=== PATIENT | female | born 1975 | race Caucasian/White ===

== ENCOUNTER 2017-12-16 16:30 | Outpatient (RCR) | payer OTHER, SELFPAY ==
--- NOTE | 2017-09-22 17:32 | HP.PTEVAL_ITS ---
Patient's Visit Information MINA CHOWDHURY is a 42 year old F referred to Physical Therapy by DO EVAN Bailey with a diagnosis of R med meniscus repair 08-05-2018. Date of Evaluation: 09/22/17 Physical Therapist: Carmen Posadas - Visit Plan Frequency: 2-3x /Week Duration: 2 Months Plan: 2-3X/ week for 6-8 weeks for R knee AROM, strengthening, gait training, functional activities with HEP and modalities PRN. ++++Pt's Quad is extremely weak and causing her decreased ability to full contract Quad with gait (start slowly to increase ROM, Quad strengthm and gait mechaincis - Subjective Subjective: Aug 05 had R meniscal repair on the R knee. She has been NWB and in a brace for the last [address] Thao Thursday and she was able to get off the crutches and the brace and took till Thursday to be able to walk without the one crutch. She returns back to Dr Thao in 6 weeks. She has been trying to squat to try and bend the knee. She is having trouble bending the knee. For 2 weeks the brace was locked and then in 2 weeks she was aloowed to release the brace to 90 degrees. She was never able to to get it to 90 degrees. Repair is healed. She has been biking at home up until Surgery and Yoga every day (modified). - Pain R knee pain Pain Intensity (Out of 10): 0 Pain Intensity Range: 5 Comment: 09/23 with walking - Objective Gait: Walks with decrease heel to toe gait pattern on the R, increased knee flexion on the R and decreased stance time on the R. LE MMT: hip abd R 4/5, L 5 /5, hip ext R 4-/5 and L 4/5, knee flex and ext on the R not tested due to surgical procedure. R knee flexion 65 degrees AROM....after 5 min on Nu-step L1... pt was able to get to 68 degrees. Tight gaastroc on the R - Goals Goal 1:: I HEP Goal Time Frame: 4-6 Weeks Goal 2:: Increase R knee AROM 0-130 degrees flexion Goal Time Frame: 4-6 Weeks Goal 3:: Walk with a normal gait pattern Goal Time Frame: 4-6 Weeks Goal 4:: Be able to go up and down stairs recip without a rail and without any signs of weakness Goal Time Frame: 4-6 Weeks - Rehabilitation Potential Rehabilitation Potential: Good - Anticipated Interventions Patient/Client Instruction: Educate patient on: Plan of Care For the Purpose of:: To decrease pain, To decrease swelling/inflammation, To increase ROM, To improve nutrient delivery to tissue, To improve muscle performance and motor function, To improve ability to perform ADL's, To decrease level of supervision to perform tasks, To improve ability of physical actions for home/community/work/leisure, To improve gait and locomotor functions , To improve health of tissue, To decrease soft tissue restriction, To increase flexibility/ROM, To improve balance, To improve safety with gait Therapeutic Exercise to Include: Strength training, Balance training, Flexibilty training, Gait and locomotor training, Passive ROM, Active ROM For the Purpose of:: To decrease pain, To decrease swelling/inflammation, To increase ROM, To improve nutrient delivery to tissue, To improve muscle performance and motor function, To improve ability to perform ADL's, To increase tolerance to activity/condition/position, To improve performance and independence with ADL's, To improve ability of physical actions for home/ community/work/leisure, To improve gait and locomotor functions Functional Training to Include: Gait training For the Purpose of:: To improve gait and locomotor functions, To increase flexibility/ROM, To improve safety with gait Comment: patella mobs For the Purpose of:: To increase ROM, To improve nutrient delivery to tissue IF ES: Yes Cryotherapy (ice pack, ice massage): Yes Thermo therapy (hot pack): Yes For the Purpose of:: To decrease pain, To increase ROM, To improve nutrient delivery to tissue Thank you for the opportunity to evaluate your patient. For Medicare and Medicare HMO plans, please review the plan of care and approve it. It will need to be FAXED BACK to us at [phone] for Medicare purposes. Please let me know if there are questions or concerns regarding this plan of care. Physician Signature: Date:
--- NOTE | 2017-12-16 19:17 | HP.PTDCSUM ---
HP - PT D/C Summary It has been my pleasure to treat MINA CHOWDHURY under orders from Anita Bullock DO, for the diagnosis of R med meniscus repair 08-05-2018 for a total of 22 visit(s). Discharge Date: 12/16/17 Please see the following information for a summary of their discharge status. - Subjective Subjective: Pt reports that she always has some discomfort the day after she exercises. SHe is stil having trouble bending her knee and squatting. - Pain R knee pain Pain Intensity (Out of 10): 1 - Objective Objective/Function: 0-145 degrees R knee flexion. Pt has visable weakness present on R Quad/ham ratio with lunges, high knees and jogging although the more she did the more she seemed to be able to control her movement better despite fatigue. Pt is still not able to fully squat but she is close and will continue to work on that at home. - Goals Goal 1:: I HEP Goal Progress: Goal Met Goal 2:: Increase R knee AROM 0-130 degrees flexion Goal Progress: Goal Met Goal 3:: Walk with a normal gait pattern Goal Progress: Goal Met Goal 4:: Be able to go up and down stairs recip without a rail and without any signs of weakness Goal Progress: Goal Met Goal 5:: Be able to do 3 X 20 eccentric step downs on the R with control and no pain Goal Progress: Goal Met Goal 6:: Be able to jump and land with soft jump with no pain Goal Progress: Goal Met - Plan Plan: DC PT to HEP. Pt to call in if she has further issues - D/C Information Discharge Comments: DC PT to HEP If there are questions or concerns regarding this patient's physical therapy, please feel free to call me at [phone]. Thank you for the referral of this patient. Sincerely, Carmen Posadas
== END 2017-12-16 19:00 | disposition home or self-care (01) ==
LOC: PT 16:30
PROVIDERS: Family Provider Family Medicine; PCP Family Medicine; Visit Provider Orthopaedic Surgery
DX: Z98.890 Other specified postprocedural states (principal)
CPT/HCPCS: 97110; 97161

== ENCOUNTER → 2017-12-19 07:47 | Outpatient (CLI) | payer OTHER, SELFPAY ==
[2017-12-19 09:22] LABS: Free T3 2.3 pg/mL (2.18-3.98); T4 Free Direct 1.17 ng/dL (0.76-1.46); Thyroid Stim Hormone (TSH) 0.57 uIU/mL (0.358-3.74)
== END ==
PROVIDERS: Family Provider Family Medicine; PCP Family Medicine; Visit Provider Nurse Practitioner
DX: E07.9 Disorder of thyroid, unspecified (principal)
CPT/HCPCS: 36415; 84439; 84443; 84481

== ENCOUNTER → 2017-12-25 13:49 | Outpatient (CLI) | payer OTHER, SELFPAY ==
--- NOTE | 2017-12-25 13:52 | US_ITS ---
STUDY: THYROID ULTRASOUND REASON FOR EXAM: Female, 42 years old. HYPOTHYROIDISM ON SINTHROID X 15 YEARS TECHNIQUE: Ultrasound evaluation of the thyroid was performed with real-time and static peres-scale imaging. COMPARISON: 10.01.16 FINDINGS: RIGHT LOBE: The right lobe of the thyroid gland measures 3.8 x 1 x 1 cm. There is a homogeneous echotexture. There are no demonstrated solid, cystic or complex lesions. LEFT LOBE: The left lobe of the thyroid gland measures 3.9 x 0.9 x 1 cm. There is a homogeneous echotexture. There are no demonstrated solid, cystic or complex lesions. ISTHMUS: The isthmus measures 2MM . The regional lymph nodes are normal. US/Thyroid IMPRESSION: Normal ultrasound examination of the thyroid. Electronically Signed: Rik Freedman MD at 19:29 EDT , Service support ,
== END ==
PROVIDERS: Family Provider Family Medicine; PCP Family Medicine; Visit Provider Nurse Practitioner
DX: E03.9 Hypothyroidism, unspecified (principal)
CPT/HCPCS: 76536

== ENCOUNTER → 2018-03-22 15:21 | Outpatient (CLI) | payer OTHER, SELFPAY ==
[2018-03-22 17:38] LABS: Absolute Lymphocyte Count 1.63 X10^3/ul (0.83-4.51); Absolute Neutrophil Count 4.2 X10^3/uL (2.0-7.7); Basophil# 0.01 X10^3/uL; Basophil% 0.2 % (0-1); Eosinophil# 0.12 X10^3/uL; Eosinophils% 1.9 % (0-5); Hematocrit 42.2 % (37-47); Hemoglobin 13.8 g/dl (12.0-15.0); Lymphocyte # 1.63 X10^3/ul (4.0); Lymphocyte % 25.3 % (19-41); Mean Corp Hgb Conc 32.7 g/gl (32-36); Mean Corpuscular Hgb 29.1 pg (27.0-32.0); Mean Corpuscular Volume 88.8 fL (81-99); Mean Platelet Vol. 10.6 fl (6.2-12.0); Monocyte# 0.47 X10^3/uL; Monocyte% 7.3 % (0-10); Neutrophil # 4.21 X10^3/uL (2.7-7.7); Neutrophil % 65.3 % (47-70); Platelet Count 291 K/mm3 (150-450); RBC Distribution Width SD 42.4 fl (35.1-43.9); Red Blood Count 4.75 M/mm3 (4.2-5.4); White Blood Count 6.4 K/mm3 (4.4-11.0)
[2018-03-22 17:45] LABS: POSITIVE COUNT NO; POSITIVE DIFFERENTIAL NO; POSITIVE MORPHOLOGY NO
[2018-03-22 18:05] LABS: Vitamin D,25 Hydroxy 16.8 ng/mL (29.95-100.01)
[2018-03-22 18:06] LABS: ALB/GLOB Ratio 1.2 RATIO (0.9-2.4); AST(SGOT) 27 U/L (15-37); Alanine Aminotransfer ALT/SGPT 41 U/L (13-56); Albumin, Serum 4.4 g/dL (3.2-5.0); Alkaline Phosphatase 60 U/L (45-117); Anion Gap 10 (5-15); BUN 9 mg/dL (7-18); BUN/Creat Ratio 12.5 RATIO (10-20); Calcium,Total 8.9 mg/dL (8.5-10.1); Chloride 104 mmol/L (98-107); Creatinine, Serum 0.72 mg/dL (0.55-1.02); EST Glomerular Filtration Rate 94 mL/min (>60); Est Glom Filt Rate - Afr Amer 113 mL/min (>60); Globulin 3.6 g/dL (2.2-4.2); Glucose 51 mg/dL (74-106); Sodium Level 141 mmol/L (136-145)
== END ==
PROVIDERS: Family Provider Family Medicine; PCP Family Medicine; Visit Provider Family Medicine
DX: R53.81 Other malaise (principal); R53.83 Other fatigue
CPT/HCPCS: 36415; 80053; 82306; 85025

== ENCOUNTER → 2018-03-26 09:42 | Outpatient (CLI) | payer OTHER, SELFPAY ==
[2018-03-29 16:05] LABS: Endomysial Antibody IgA Negative (Negative)
[2018-03-30 07:55] LABS: Deamidated Gliadin IgA 7 units (0-19); Deamidated Gliadin IgG 5 units (0-19); Immunoglobulin A 224 mg/dL (87-352); t-Transglutaminase IgA <2 U/mL (0-3)
== END ==
PROVIDERS: Family Provider Family Medicine; PCP Family Medicine; Visit Provider Family Medicine
DX: Z04.1 Encounter for examination and observation following transport accident (principal); V19.88XA Pedal cyclist (driver) (passenger) injured in other specified transport accidents, initial encounter; Y93.9 Activity, unspecified; Y92.9 Unspecified place or not applicable; Y99.9 Unspecified external cause status
CPT/HCPCS: 36415; 82784; 83516; 86255

== ENCOUNTER → 2018-06-29 07:45 | Outpatient (CLI) | payer OTHER, SELFPAY ==
[2018-06-29 09:06] LABS: Free T3 2.2 pg/mL (2.18-3.98); T4 Free Direct 1.22 ng/dL (0.76-1.46); Thyroid Stim Hormone (TSH) 1.99 uIU/mL (0.358-3.74)
== END ==
PROVIDERS: Family Provider Family Medicine; PCP Family Medicine; Referring Provider Nurse Practitioner; Visit Provider Nurse Practitioner
DX: E03.9 Hypothyroidism, unspecified (principal)
CPT/HCPCS: 36415; 84439; 84443; 84481

== ENCOUNTER → 2018-10-04 14:54 | Outpatient (CLI) | payer OTHER, SELFPAY ==
[2017-12-24 10:53] VITALS: BMI 21.1
[2018-10-04 17:55] LABS: Free T3 1.9 pg/mL (2.18-3.98); T4 Free Direct 1.08 ng/dL (0.76-1.46); Thyroid Stim Hormone (TSH) 1.76 uIU/mL (0.358-3.74)
--- OUTSIDE RECORDS SUMMARY | 2018-12-07 03:10 | XMS RPT_ITS ---
:1975 Author Organization OHIP Support Name Relationship Address Phone SEAN STEWART Unavailable [address] + [place] [address] WOOCISCH Unavailable [address] + [place] [address] UDELL, SEAN Unavailable [address] + [place] [address] WO[place] Unavailable [address] + [place] [address] UDELL, SEAN Unavailable [address] + [place] [address] WO[place]ISCH Unavailable [address] + [place] [address] UDELL, SEAN Unavailable [address] + [place] [address] WO[place]CH Unavailable [address] + [place] [address] UDELL, SEAN Unavailable [address] + [place] [address] WO[place]IS[facility] Unavailable [address] + [place] [address] UDELL, SEAN Unavailable [address] + [place] [address] WO[place]ISCH Unavailable [address] + [place] [address] UDELL, SEAN Unavailable [address] + [place] [address] WO[place] Unavailable [address] + [place] [address] UDELL, SEAN Unavailable [address] + [place] [address] WOOCISCH Unavailable [address] + [place] [address] UDELL, SEAN Unavailable [address] + [place] [address] WOOCISCH Unavailable [address] + [place] [address] SEAN STEWART Unavailable [address] + [place] [address] WO[place] Unavailable [address] + [place] [address] Care Team Providers Name Role Phone ESTEFANY DAVIS Attending Unavailable ESTEFANY DAVIS Referring Unavailable ESTEFANY DAVIS Referring Unavailable Stefanie Roman EDUCATIONAL PROGRAM DIRECTOR-C Attending Unavailable Shook, Stefanie Lang EDUCATIONAL PROGRAM DIRECTOR-C Referring Unavailable Jolliff, Olga Primary Care Unavailable ShookStefanie EDUCATIONAL PROGRAM DIRECTOR-C Attending Unavailable Shook, Stefanie Lang EDUCATIONAL PROGRAM DIRECTOR-C Referring Unavailable Jolliff, Olga Primary Care Unavailable Jolliff, Olga Attending Unavailable Jolliff, Olga Primary Care Unavailable Jolliff, Olga Attending Unavailable Jolliff, Olga Primary Care Unavailable ShookStefanie EDUCATIONAL PROGRAM DIRECTOR-C Attending Unavailable Shook, Stefanie Lang EDUCATIONAL PROGRAM DIRECTOR-C Referring Unavailable Jolliff, Olga Primary Care Unavailable Shook, Stefanie Lang EDUCATIONAL PROGRAM DIRECTOR-C Attending Unavailable Shook, Stefanie Lang EDUCATIONAL PROGRAM DIRECTOR-C Referring Unavailable Jolliff, Olga Primary Care Unavailable ShookStefanie EDUCATIONAL PROGRAM DIRECTOR-C Attending Unavailable Jolliff, Olga Referring Unavailable Jolliff, Olga Primary Care Unavailable Chicorelli, Anita Attending Unavailable Jolliff, Olga Referring Unavailable Jolliff, Olga Primary Care Unavailable Chicorelli, Anita Attending Unavailable Jolliff, Olga Primary Care Unavailable Chicorelli, Anita Referring Unavailable Jolliff, Olga Attending Unavailable Jolliff, Olga Primary Care Unavailable PROBLEMS PROBLEMS DATE TYPE CONDITION / CODE ATTENDING STATUS SOURCE 03/25/2018 Unknown Z84.89 - Family Joeryn, Olga Active [facility] history of other Community specified conditions Hospital / Z84.89(ICD-10) Repository 03/02/2018 Active Encounter for other NA Active [facility] screening for Clinic Main malignant neoplasm [place] of breast / Repository Z12.39(ICD-10) 12/24/2017 Unknown E07.9 - Disorder of Stefanie Roman Active [facility] thyroid, unspecified EDUCATIONAL PROGRAM DIRECTOR-C Community / E07.9(ICD-10) Hospital Repository 12/24/2017 Unknown E03.9 - Stefanie Roman Active [place] Hypothyroidism, EDUCATIONAL PROGRAM DIRECTOR-C Community unspecified / Hospital E03.9(ICD-10) Repository 12/24/2017 Unknown Z98.890 - Other [place], Active [place] specified [facility] postprocedural Hospital states / Repository Z98.890(ICD-10) 10/29/2017 Unknown M25.561 - Pain in Kobe, Active [place] right knee / [facility] M25.561(ICD-10) Hospital Repository PROCEDURES PROCEDURES No Procedure Records FoundRESULTS RESULTS FREE T3 Collected: 10/04/2018 Status: F Source: [place] 2:59 PM [facility] REPOSITORY TYPE CODE TESTS RESULT OUT OF RANGE REFERENCE UNITS LAB L501.10566 2.18-3.98 pg/mL Low FREE T3 1.9 Performed By: #### L501.26266, L501.9520, L506.0400 #### [facility] [address] [place], [address] THYROID STIM HORMONE Collected: 10/04/2018 Status: F Source: [place] (TSH) 2:59 PM [facility] REPOSITORY TYPE CODE TESTS RESULT OUT OF RANGE REFERENCE UNITS LAB L501.9520 0.358-3.74 uIU/mL Normal TSH 1.76 Performed By: #### L501.27645, L501.9520, L506.0400 #### [facility] [address] [place] [place], [address] T4 FREE DIRECT Collected: 10/04/2018 Status: F Source: [place] 2:59 PM [facility] REPOSITORY TYPE CODE TESTS RESULT OUT OF RANGE REFERENCE UNITS LAB L506.0400 0.76-1.46 ng/dL Normal T4 FREE 1.08 DIRECT Performed By: #### L501.48032, L501.9520, L506.0400 #### [facility] [address] [place], [address] FREE T3 Collected: 06/29/2018 Status: F Source: [place] 7:48 AM [facility] REPOSITORY TYPE CODE TESTS RESULT OUT OF RANGE REFERENCE UNITS LAB L501.29104 2.18-3.98 pg/mL Normal FREE T3 2.2 Performed By: #### L501.31211, L501.9520, L506.0400 #### [facility] [address] [place], [address] THYROID STIM HORMONE Collected: 06/29/2018 Status: F Source: [place] (TSH) 7:48 AM [facility] REPOSITORY TYPE CODE TESTS RESULT OUT OF RANGE REFERENCE UNITS LAB L501.9520 0.358-3.74 uIU/mL Normal TSH 1.99 Performed By: #### L501.00824, L501.9520, L506.0400 #### [facility] [address] [place], [address] T4 FREE DIRECT Collected: 06/29/2018 Status: F Source: [place] 7:48 AM [facility] REPOSITORY TYPE CODE TESTS RESULT OUT OF RANGE REFERENCE UNITS LAB L506.0400 0.76-1.46 ng/dL Normal T4 FREE 1.22 DIRECT Performed By: #### L501.73921, L501.9520, L506.0400 #### [facility] [address] [place], [address] CELIAC AB,COMPREHENSIVE Collected: 03/26/2018 Status: F Source: [place] 9:43 AM [facility] REPOSITORY Order Comment: Order Date: 03/24/18 Order Info: 0751-1 - CELAB TYPE CODE TESTS RESULT OUT OF RANGE REFERENCE UNITS LAB L3410.2500 0-19 units ANTIGLIADIN Normal IGA 7 Result Comment: Negative 0 - 19 Weak Positive 20 - 30 Moderate to Strong Positive >30 LAB L3410.2600 0-19 units ANTIGLIADIN Normal IGG 5 Result Comment: Negative 0 - 19 Weak Positive 20 - 30 Moderate to Strong Positive >30 LAB L3410.2650 87-352 mg/dL Normal IMMUNO A 224 Result Comment: Performed at: [address] [id number] Tank Driver: Sarwat Vaughn PhD, Phone: [phone] LAB L3419.7048 0-3 U/mL Normal tTG IGA <2 Result Comment: Negative 0 - 3 Weak Positive 4 - 10 Positive >10 Tissue Transglutaminase (tTG) has been identified as the endomysial antigen. Studies have demonstr- ated that endomysial IgA antibodies have over 99% specificity for gluten sensitive enteropathy. LAB L3410.2950 0-5 U/mL Normal tTG IGG 4 Result Comment: Negative 0 - 5 Weak Positive 6 - 9 Positive >9 LAB L3410.2975 Negative Normal ENDOMYSIAL IGA Negative Performed By: #### L3410.2350 #### [facility] (refer to report for specific site) refer to report for address and phone number CBC W/DIFF, AUTOMATED Collected: 03/22/2018 Status: F Source: [place] 3:24 PM [facility] REPOSITORY TYPE CODE TESTS RESULT OUT OF RANGE REFERENCE UNITS LAB L100.1000 4.4-11.0 K/mm3 Normal WBC 6.4 LAB L100.1200 4.2-5.4 M/mm3 Normal RBC 4.75 LAB L100.1300 12.0-15.0 g/dl Normal HGB 13.8 LAB L100.1400 37-47 % Normal HCT 42.2 LAB L100.1500 81-99 fL Normal MCV 88.8 LAB L100.1600 27.0-32.0 pg Normal MCH 29.1 LAB L100.1700 32-36 g/gl Normal MCHC 32.7 LAB L100.1810 11.6-14.6 % Normal RDW CV 13.0 LAB L100.1820 35.1-43.9 fl Normal RDW SD 42.4 LAB L100.1900 150-450 K/mm3 Normal PLT 291 LAB L100.2000 6.2-12.0 fl Normal MPV 10.6 LAB L100.2100 47-70 % Normal NEUT% 65.3 LAB L100.2200 19-41 % Normal LY% 25.3 LAB L100.2300 0-10 % Normal MONO% 7.3 LAB L100.2400 0-5 % Normal EO% 1.9 LAB L100.2500 0-1 % Normal BASO% 0.2 LAB L100.2550 0.0-0.9 % Normal IM GRAN % 0.000 Result Comment: IG% - Immature Granulocytes (promyelocytes, myelocytes and metamyelocytes) > 1% indicates that a LEFT SHIFT is Present. LAB L100.2620 2.0-7.7 X10 3/uL Normal Absolute Neut 4.2 LAB L100.2720 0.83-4.51 X10 3/ul Normal Absolute Lymph 1.63 Performed By: #### L100.0100 #### [facility] [address] [place], [address] VITAMIN D,25 HYDROXY Collected: 03/22/2018 Status: F Source: [place] 3:24 PM [facility] REPOSITORY TYPE CODE TESTS RESULT OUT OF REFERENCE UNITS RANGE LAB L506.1000 29.95-100.01 ng/mL Low Vitamin D 16.8 25-OH Result Comment: Vitamin D 25(OH) Status Range Deficiency <20 ng/mL (50nmol/L) Insuffciency 20 - 30 ng/mL (50 - 75 nmol/L) Sufficiency 30 - 100 ng/mL (75 - 250 nmol/L) Toxicity >100 ng/mL (>250 nmol/L) Performed By: #### L506.1000 #### [facility] [address], [address] COMPREHENSIVE METABOLIC Collected: 03/22/2018 Status: F Source: [facility] 3:24 PM [facility] REPOSITORY TYPE CODE TESTS RESULT OUT OF RANGE REFERENCE UNITS LAB L501.0100 74-106 mg/dL Low GLU 51 Result Comment: Please note revised GLUCOSE reference range effective 2017. LAB L501.1000 7-18 mg/dL Normal BUN 9 LAB L501.1100 0.55-1.02 mg/dL Normal CREAT,SERUM 0.72 Result Comment: The validity of the calculated GFR AND GFRAA in patients over 70 years has not been determined. Clinical correlation is essential. LAB L501.1110 >60 mL/min Normal EST GFR 94 Result Comment: Non- GFR Calc LAB L501.1115 >60 mL/min Normal EST GFR - AA 113 Result Comment: GFR Calc LAB L501.1300 10-20 RATIO Normal BUN/CRE 12.5 LAB L501.1500 6.4-8.2 g/dL T Normal PROT 8.0 LAB L501.1800 3.2-5.0 g/dL Normal ALB 4.4 LAB L501.1950 2.2-4.2 g/dL Normal GLOB 3.6 LAB L501.2000 0.9-2.4 RATIO Normal A/G 1.2 LAB L501.2200 8.5-10.1 mg/dL CA Normal 8.9 LAB L501.4100 15-37 U/L Normal AST 27 LAB L501.4305 45-117 U/L Normal ALK P 60 LAB L501.4405 13-56 U/L Normal ALT 41 LAB L501.4600 0.20-1.00 mg/dL T Normal BILI 0.60 LAB L501.5300 136-145 mmol/L NA Normal 141 LAB L501.5600 3.5-5.1 mmol/L K Normal 4.0 LAB L501.5900 98-107 mmol/L CL Normal 104 LAB L501.6100 21.0-32.0 mmol/L Normal CO2 27.0 LAB L501.6200 5-15 Normal GAP 10 Performed By: #### L500.4050 #### [facility] [address] [place], [address] CNCO Observed: 03/02/2018 Status: COMPLETED Source: [place] 3:55 PM [facility] REPOSITORY HNO ID: [id number] Author: Mammography Coordinator Service: (none) Author Type: Physician Type: Letter Filed: 03/03/2018 11:32 PM Note Text: March 02, 2018 PID: [id number] Mina Jaylon Stewart [address] [place] [address] Dear Sree Pierrez Terry, We are pleased to inform you that the results of your recent breast imaging exam on 03/02/2018 are normal. Early detection of cancer is very important. We also understand recommendations regarding breast cancer screening are controversial. Please discuss with your primary care provider which strategy is best for you and whether a mammogram is right for you. Your imaging studies and report will be kept on file at [facility] as part of your permanent medical record and are available for your continuing care. Thank you for allowing us to help in meeting your health care needs. Sincerely, Dr. Velarde Interpreting Radiologist [facility] (Normal over 40) CNOV Observed: 03/02/2018 Status: COMPLETED Source: [place] 1:30 PM [facility] REPOSITORY Office Visit (WOOB) MINA WELLS ([id number]) 1975 F Date Time Provider Department 03/02/18 1:30 PM ESTEFANY DAVIS [facility]OO[facility] During your visit today, we recorded the following information about you: Blood pressure Weight Height Last Period 118/ 55.3 kg 1.6 m 02/10/18 Estefany Davis MD 03/02/2018 1:51 PM Signed Mina Stewart is a 43 year old who presents for her annual gynecologic exam without complaints. Menses: cycles every 21-35 days and 3-5 days of flow. Contraception: vasectomy HPV vaccine: No Last Pap: 2014 normal HPV: negative History of abnormal pap: No Last mammogram: today Sexually active: Yes Obstetric History T2 L2 SAB0 TAB0 Ectopic0 Multiple0 Live Births2 PAST MEDICAL HISTORY Diagnosis Date - Migraine, unspecified, with intractable migraine, so stated, without mention of status migrainosus Migraine - Other postablative hypothyroidism 04 BARKER - Thyroid dysfunction complicating , childbirth, or the puerperium PAST SURGICAL HISTORY Procedure Laterality Date - KNEE SURGERY HX Right 07/2017 - REMOVAL ADENOIDS,PRIMARY,<12 Y/O Adenoidectomy FAMILY HISTORY Problem Relation Age of Onset - Breast Cancer Mother - Thyroid Mother 50 - Prostate Cancer Father 72 radiation only - Thyroid Maternal Grandmother - Stroke Maternal Grandfather - Thyroid Paternal Grandmother - Heart Paternal Grandmother RI - Diabetes Paternal Grandfather - Heart Paternal Grandfather RI - Thyroid Paternal Aunt x4 - Thyroid Paternal Aunt cancer - Thyroid Other female cous x2 SOCIAL HISTORY Social History Substance Use Topics - Smoking status: Never Smoker - Smokeless tobacco: Never Used - Alcohol use Yes Comment: rare REVIEW OF SYSTEMS Abdomen: No abdominal pain, nausea, vomiting, diarrhea, or constipation. No bloating, early satiety, indigestion, or increased flatulence. Bladder: No dysuria, gross hematuria, urinary frequency, urinary urgency, or incontinence. Breast: No breast lumps, nipple d/c, overlying skin changes, redness or skin retraction. Allergies and current medication updated:Yes EXAM: There were no vitals taken for this visit. GENERAL: pleasant, female in no apparent distress HEENT: Normocephalic, atraumatic, mucus membranes moist and no lesions NECK: Supple, full range of motion, no adenopathy and thyroid normal DERMATOLOGY: Normal, without lesions, non-icteric and non-hirsute BREAST: soft, non-tender, symmetric, no dominant mass, normal nipple-areolar complex, no lymphadenopathy and no nipple discharge CHEST: Normal inspiratory effort ABDOMEN: soft, non-tender and no masses PELVIC: external genitalia normal, normal Bartholin's glands, urethra, Delhi's glands, no vulvar lesions, no cervical lesions, good vaginal support, physiologic discharge present, normal appearing perineal body and perianal region BIMANUAL: uterus normal size, shape and consistency, no adnexal masses and non-tender RECTOVAGINAL: deferred. NEURO: alert and oriented x3,exam grossly non-focal EXTREMITIES: normal ASSESSMENT/PLAN: 1) Health maintenance: Pap/HPV up to date. 2) Contraception: vasectomy. Contraceptive options reviewed and information provided. 3) STD screening: Declined STD check. 4) Follow up one year or sooner as needed sligh irreg. menses, reassured, reports TSH normal, followed by endocrine Estefany Davis MD Referring Provider: ESTEFANY DAVIS [[id number]] Allergies As of Date: 03/02/2018 Noted Allergy Reaction environmental [Other] 08/27/2005 Date Reviewed: 03/02/2018 Reviewed by: Estefany Davis - Fully Assessed Reason for Visit: Yearly Exam With Mammogram [188] Visit Diagnoses:Encounter for gynecological examination (general) (routine) without abnormal findings [Z01.419] Encounter for screening mammogram for breast cancer [Z12.31] Order(s):[facility] SCREENING [7985934] Order #: [id number] FUTURE Prescriptions as of 03/02/2018 Sig: FLUTICASONE 50 MCG/ACTUATION * Use 2 Sprays in each nostril * SYNTHROID 125 MCG TABLET Take 1 tab daily and an extra* Problem List As Of Date 03/02/2018 Noted Resolved POSTABLAT HYPOTHYR NEC [E89.0] 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 Follow-up and Disposition History Recorded Encounter Status:Closed by ESTEFANY DAVIS MD on 03/02/18 PROGRESS Observed: 03/02/2018 Status: COMPLETED Source: [place] 1:27 PM [facility] REPOSITORY HNO ID: [id number] Author: Estefany Davis Service: (none) Author Type: Physician Type: Progress Notes Filed: 03/02/2018 1:51 PM Note Text: Mina Stewart is a 43 year old who presents for her annual gynecologic exam without complaints. Menses: cycles every 21-35 days and 3-5 days of flow. Contraception: vasectomy HPV vaccine: No Last Pap: 2014 normal HPV: negative History of abnormal pap: No Last mammogram: today Sexually active: Yes Obstetric History T2 L2 SAB0 TAB0 Ectopic0 Multiple0 Live Births2 PAST MEDICAL HISTORY Diagnosis Date - Migraine, unspecified, with intractable migraine, so stated, without mention of status migrainosus Migraine - Other postablative hypothyroidism 04 BARKER - Thyroid dysfunction complicating , childbirth, or the puerperium PAST SURGICAL HISTORY Procedure Laterality Date - KNEE SURGERY HX Right 07/2017 - REMOVAL ADENOIDS,PRIMARY,<12 Y/O Adenoidectomy FAMILY HISTORY Problem Relation Age of Onset - Breast Cancer Mother - Thyroid Mother 50 - Prostate Cancer Father 72 radiation only - Thyroid Maternal Grandmother - Stroke Maternal Grandfather - Thyroid Paternal Grandmother - Heart Paternal Grandmother RI - Diabetes Paternal Grandfather - Heart Paternal Grandfather RI - Thyroid Paternal Aunt x4 - Thyroid Paternal Aunt cancer - Thyroid Other female cous x2 SOCIAL HISTORY Social History Substance Use Topics - Smoking status: Never Smoker - Smokeless tobacco: Never Used - Alcohol use Yes Comment: rare REVIEW OF SYSTEMS Abdomen: No abdominal pain, nausea, vomiting, diarrhea, or constipation. No bloating, early satiety, indigestion, or increased flatulence. Bladder: No dysuria, gross hematuria, urinary frequency, urinary urgency, or incontinence. Breast: No breast lumps, nipple d/c, overlying skin changes, redness or skin retraction. Allergies and current medication updated:Yes EXAM: There were no vitals taken for this visit. GENERAL: pleasant, female in no apparent distress HEENT: Normocephalic, atraumatic, mucus membranes moist and no lesions NECK: Supple, full range of motion, no adenopathy and thyroid normal DERMATOLOGY: Normal, without lesions, non-icteric and non-hirsute BREAST: soft, non-tender, symmetric, no dominant mass, normal nipple-areolar complex, no lymphadenopathy and no nipple discharge CHEST: Normal inspiratory effort ABDOMEN: soft, non-tender and no masses PELVIC: external genitalia normal, normal Bartholin's glands, urethra, Delhi's glands, no vulvar lesions, no cervical lesions, good vaginal support, physiologic discharge present, normal appearing perineal body and perianal region BIMANUAL: uterus normal size, shape and consistency, no adnexal masses and non-tender RECTOVAGINAL: deferred. NEURO: alert and oriented x3,exam grossly non-focal EXTREMITIES: normal ASSESSMENT/PLAN: 1) Health maintenance: Pap/HPV up to date. 2) Contraception: vasectomy. Contraceptive options reviewed and information provided. 3) STD screening: Declined STD check. 4) Follow up one year or sooner as needed sligh irreg. menses, reassured, reports TSH normal, followed by endocrine Estefany Davis MD [facility] SCREEN[facility] Observed: 03/02/2018 Status: F Source: [place] 1:11 PM [facility] REPOSITORY * * *Final Report* * * DATE OF EXAM: Mar 02 2018 1:11PM WOW [id number] - [facility] SCREENING / PROCEDURE REASON: Encounter for other screening for malignant neoplasm of breast * * * * Physician Interpretation * * * * RESULT: #[id number] - [facility] SCREENING BILATERAL DIGITAL SCREENING MAMMOGRAM WITH CAD: 03/02/2018 HISTORY: Encounter For Other Screening For Malignant Neoplasm Of Breast /Screening Mammogram - patient reports NO breast symptoms /Priors available for comparison. RESULT: TECHNIQUE: The study was acquired using full field digital technology and interpreted from soft copy. Current study was also evaluated with a Computer Aided Detection (CAD). Comparison is made to exams dated: 09/02/2017 mammogram, 03/03/2017 mammogram - [facility], 02/27/2017 mammogram - [facility], 11/27/2015 mammogram, 05/29/2015 mammogram - [facility], and 05/23/2015 mammogram - [facility]. There are scattered fibroglandular elements in both breasts. No significant masses, calcifications, or other findings are seen in either breast. There has been no significant interval change. IMPRESSION: NEGATIVE There is no mammographic evidence of malignancy. A 1 year screening mammogram is recommended. Linda leung/ju:03/02/2018 15:55:42 Document Specialist: Cheryle LEAL (R)(Juan Jose), [facility] letter sent: Normal over 40 Mammogram BI-RADS: 1 Negative Rim Turning Machine Operator: Ju Transcribe Date/Time: Mar 02 2018 1:09P Dictated by: LINDA VELARDE MD This examination was interpreted and the report reviewed and electronically signed by: LINDA VELARDE MD on Mar 02 2018 3:55PM EST [id number] PROGRESS Observed: 02/08/2018 Status: COMPLETED Source: [place] 2:05 PM [facility] REPOSITORY HNO ID: [id number] Author: Ashia Gonzalez Service: (none) Author Type: Nurse Practitioner Type: Progress Notes Filed: 02/08/2018 2:50 PM Note Text: Subjective HPI HPI Mina Stewart is a 42 year old female who presents today for CC of cough, sinus pressure and drainage This started 2 weeks ago and wont go away She is also having facial pressure Symptoms are worsened by leaning forward. She has tried tylenol ibuprofen, nyquil, zyrted D, with short term relief Risk factors second hand PMH sinusitis in past BP 112/80 Pulse 86 Temp 37.2 ?C (98.9 ?F) (Tympanic) Resp 14 Wt 54.4 kg (120 lb) BMI 21.26 kg/m? ALLERGIES Allergen Reactions - Environmental [Othe* ACTIVE PROBLEM LIST Other Postablative Hypothyroidism Family History Problem Relation Age of Onset - Breast Cancer Mother - Thyroid Mother 50 - Prostate Cancer Father 72 radiation only - Thyroid Maternal Grandmother - Stroke Maternal Grandfather - Thyroid Paternal Grandmother - Heart Paternal Grandmother RI - Diabetes Paternal Grandfather - Heart Paternal Grandfather RI - Thyroid Paternal Aunt x4 - Thyroid Paternal Aunt cancer - Thyroid Other female cous x2 Social History Marital status: Spouse name: Sean Years of education: 18 Number of children: 1 Occupational History 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 Negative for chills and malaise/fatigue. HENT: Positive for congestion, ear pain (pressure), sinus pain and sore throat (from drainage). Respiratory: Negative for cough, sputum production, shortness of breath and wheezing. Cardiovascular: Negative for chest pain. Musculoskeletal: Negative for myalgias. Skin: Negative for rash. Neurological: Positive for headaches (sinus). Objective Physical Exam Constitutional: She is well-developed, well-nourished, and in no distress. HENT: Head: Normocephalic and atraumatic. Right Ear: External ear and ear canal normal. Tympanic membrane is bulging. Tympanic membrane is not injected, not erythematous and not retracted. A middle ear effusion (serous) is present. Left Ear: External ear and ear canal normal. Tympanic membrane is bulging. Tympanic membrane is not injected, not erythematous and not retracted. A middle ear effusion (serous) is present. Nose: Mucosal edema and rhinorrhea present. Right sinus exhibits maxillary sinus tenderness. Right sinus exhibits no frontal sinus tenderness. Left sinus exhibits maxillary sinus tenderness. Left sinus exhibits no frontal sinus tenderness. Mouth/Throat: Uvula is midline and mucous membranes are normal. Posterior oropharyngeal erythema (mild streaking) present. No oropharyngeal exudate, posterior oropharyngeal edema or tonsillar abscesses. Post nasal drainage Eyes: Conjunctivae and EOM are normal. Pupils are equal, round, and reactive to light. Neck: Normal range of motion. Cardiovascular: Normal rate, regular rhythm and normal heart sounds. Pulmonary/Chest: Effort normal and breath sounds normal. No respiratory distress. She has no decreased breath sounds. She has no wheezes. She has no rhonchi. She has no rales. Lymphadenopathy: Head (right side): No submental, no submandibular, no tonsillar, no preauricular and no posterior auricular adenopathy present. Head (left side): No submental, no submandibular, no tonsillar, no preauricular and no posterior auricular adenopathy present. She has no cervical adenopathy. Right cervical: No superficial cervical and no posterior cervical adenopathy present. Left cervical: No superficial cervical and no posterior cervical adenopathy present. Right: No supraclavicular adenopathy present. Left: No supraclavicular adenopathy present. Skin: Skin is warm and dry. Psychiatric: Affect normal. Nursing note and vitals reviewed. ASSESSMENT/PLAN: 1. Acute non-recurrent maxillary sinusitis - ICD9: 461.0, ICD10: J01.00 - Will begin treatment with Augmentin 875 mg PO BID for 10 days - The patient should also be given warm salt water gargles, throat lozenges and/or OTC throat spray as needed and nasal saline - Continue Zyrtec D, and Flonase or nasonex 1 spray each nostril two times a day. - Supportive care with plenty of fluids, rest, and tylenol and ibuprofen as needed - Follow up in one week if symptoms persist or worsen. -Increase fluid intake. Try to drink at least 8 glasses of non caffeinated fluids daily. --Rest as much as possible. -Do the nasal saline irrigation at least 2 x day to relieve nasal mucous and congestion: brands include Grant Med, Simply saline, [place] nasal spray, or even the generic store brand one is ok. Take the entire course of antibiotics as prescribed. DO NOT stop taking it early, even if you are feeling better. -Practice good hygiene, wash hands frequently. -Monitor for signs of worsening infection: increased temperature, pain in face, ear pain or headaches or increase in nasal congestion/mucous that is not improving. -Educated patient on side effects of medication. * Seek medical care immediately, call 911, go to ER if you have chest pain, difficulty breathing, shortness of breath, inability to swallow. Diagnosis and treatment plan were discussed and questions were answered to the patient's satisfaction. Pt acknowledged understanding of concepts and follow up plan. Specific signs and symptoms that would indicate the need for higher level of care were discussed in detail warranting prompt ER evaluation. Ashia Gonzalez APRN.CNP CNOV Observed: 02/08/2018 Status: COMPLETED Source: [place] 1:30 PM [facility] REPOSITORY Office Visit (WSTR) MINA WELLS ([id number]) 1975 F Date Time Provider Department 02/08/18 1:30 PM ASHIA GONZALEZ (TONJA) WSTR During your visit today, we recorded the following information about you: Temperature Pulse Respiration Blood pressure 98.9 degrees 86/minute 14/minute 112/80 Weight 54.4 kg Ashia Gonzalez APRN.CNP 02/08/2018 2:50 PM Signed Subjective HPI HPI Mina Stewart is a 42 year old female who presents today for CC of cough, sinus pressure and drainage This started 2 weeks ago and wont go away She is also having facial pressure Symptoms are worsened by leaning forward. She has tried tylenol ibuprofen, nyquil, zyrted D, with short term relief Risk factors second hand PMH sinusitis in past BP 112/80 Pulse 86 Temp 37.2 ?C (98.9 ?F) (Tympanic) Resp 14 Wt 54.4 kg (120 lb) BMI 21.26 kg/m? ALLERGIES Allergen Reactions - Environmental [Othe* ACTIVE PROBLEM LIST Other Postablative Hypothyroidism Family History Problem Relation Age of Onset - Breast Cancer Mother - Thyroid Mother 50 - Prostate Cancer Father 72 radiation only - Thyroid Maternal Grandmother - Stroke Maternal Grandfather - Thyroid Paternal Grandmother - Heart Paternal Grandmother RI - Diabetes Paternal Grandfather - Heart Paternal Grandfather RI - Thyroid Paternal Aunt x4 - Thyroid Paternal Aunt cancer - Thyroid Other female cous x2 Social History Marital status: Spouse name: Sean Years of education: 18 Number of children: 1 Occupational History 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 Negative for chills and malaise/fatigue. HENT: Positive for congestion, ear pain (pressure), sinus pain and sore throat (from drainage). Respiratory: Negative for cough, sputum production, shortness of breath and wheezing. Cardiovascular: Negative for chest pain. Musculoskeletal: Negative for myalgias. Skin: Negative for rash. Neurological: Positive for headaches (sinus). Objective Physical Exam Constitutional: She is well-developed, well-nourished, and in no distress. HENT: Head: Normocephalic and atraumatic. Right Ear: External ear and ear canal normal. Tympanic membrane is bulging. Tympanic membrane is not injected, not erythematous and not retracted. A middle ear effusion (serous) is present. Left Ear: External ear and ear canal normal. Tympanic membrane is bulging. Tympanic membrane is not injected, not erythematous and not retracted. A middle ear effusion (serous) is present. Nose: Mucosal edema and rhinorrhea present. Right sinus exhibits maxillary sinus tenderness. Right sinus exhibits no frontal sinus tenderness. Left sinus exhibits maxillary sinus tenderness. Left sinus exhibits no frontal sinus tenderness. Mouth/Throat: Uvula is midline and mucous membranes are normal. Posterior oropharyngeal erythema (mild streaking) present. No oropharyngeal exudate, posterior oropharyngeal edema or tonsillar abscesses. Post nasal drainage Eyes: Conjunctivae and EOM are normal. Pupils are equal, round, and reactive to light. Neck: Normal range of motion. Cardiovascular: Normal rate, regular rhythm and normal heart sounds. Pulmonary/Chest: Effort normal and breath sounds normal. No respiratory distress. She has no decreased breath sounds. She has no wheezes. She has no rhonchi. She has no rales. Lymphadenopathy: Head (right side): No submental, no submandibular, no tonsillar, no preauricular and no posterior auricular adenopathy present. Head (left side): No submental, no submandibular, no tonsillar, no preauricular and no posterior auricular adenopathy present. She has no cervical adenopathy. Right cervical: No superficial cervical and no posterior cervical adenopathy present. Left cervical: No superficial cervical and no posterior cervical adenopathy present. Right: No supraclavicular adenopathy present. Left: No supraclavicular adenopathy present. Skin: Skin is warm and dry. Psychiatric: Affect normal. Nursing note and vitals reviewed. ASSESSMENT/PLAN: 1. Acute non-recurrent maxillary sinusitis - ICD9: 461.0, ICD10: J01.00 - Will begin treatment with Augmentin 875 mg PO BID for 10 days - The patient should also be given warm salt water gargles, throat lozenges and/or OTC throat spray as needed and nasal saline - Continue Zyrtec D, and Flonase or nasonex 1 spray each nostril two times a day. - Supportive care with plenty of fluids, rest, and tylenol and ibuprofen as needed - Follow up in one week if symptoms persist or worsen. -Increase fluid intake. Try to drink at least 8 glasses of non caffeinated fluids daily. --Rest as much as possible. -Do the nasal saline irrigation at least 2 x day to relieve nasal mucous and congestion: brands include Grant Med, Simply saline, [place] nasal spray, or even the generic store brand one is ok. Take the entire course of antibiotics as prescribed. DO NOT stop taking it early, even if you are feeling better. -Practice good hygiene, wash hands frequently. -Monitor for signs of worsening infection: increased temperature, pain in face, ear pain or headaches or increase in nasal congestion/mucous that is not improving. -Educated patient on side effects of medication. * Seek medical care immediately, call 911, go to ER if you have chest pain, difficulty breathing, shortness of breath, inability to swallow. Diagnosis and treatment plan were discussed and questions were answered to the patient's satisfaction. Pt acknowledged understanding of concepts and follow up plan. Specific signs and symptoms that would indicate the need for higher level of care were discussed in detail warranting prompt ER evaluation. Ashia Gonzalez APRN.TONJA Gonzalez APRN.CNP 02/08/2018 2:14 PM Signed ASSESSMENT/PLAN: 1. Acute non-recurrent maxillary sinusitis - ICD9: 461.0, ICD10: J01.00 - Will begin treatment with Augmentin 875 mg PO BID for 10 days - The patient should also be given warm salt water gargles, throat lozenges and/or OTC throat spray as needed and nasal saline - Continue Zyrtec D, and Flonase or nasonex 1 spray each nostril two times a day. - Supportive care with plenty of fluids, rest, and tylenol and ibuprofen as needed - Follow up in one week if symptoms persist or worsen. -Increase fluid intake. Try to drink at least 8 glasses of non caffeinated fluids daily. --Rest as much as possible. -Do the nasal saline irrigation at least 2 x day to relieve nasal mucous and congestion: brands include Grant Med, Simply saline, [place] nasal spray, or even the generic store brand one is ok. Take the entire course of antibiotics as prescribed. DO NOT stop taking it early, even if you are feeling better. -Practice good hygiene, wash hands frequently. -Monitor for signs of worsening infection: increased temperature, pain in face, ear pain or headaches or increase in nasal congestion/mucous that is not improving. -Educated patient on side effects of medication. * Seek medical care immediately, call 911, go to ER if you have chest pain, difficulty breathing, shortness of breath, inability to swallow. Referring Provider: SELF [200] Allergies As of Date: 02/08/2018 Noted Allergy Reaction environmental [Other] 08/27/2005 Date Reviewed: 02/08/2018 Reviewed by: Ashia KnappDana-Farber Cancer InstituteGeo Gonzalez - Fully Assessed Reason for Visit: Head Congestion [234] Cmt: nasal drainage, sore throat x 10 days Primary Visit Diagnosis:Acute non-recurrent maxillary sinusitis [J01.00] Order(s):amoxicillin-clavulanic acid (AUGMENTIN) 875-125 mg per tabletTake 1 tablet by mouth twice daily for 10 days.Disp: 20 tabletRfl: 0 Prescriptions as of 02/08/2018 Sig: FLUTICASONE 50 MCG/ACTUATION * Use 2 Sprays in each nostril * SYNTHROID 125 MCG TABLET Take 1 tab daily and an extra* AMOXICILLIN 875 MG-POTASSIUM * Take 1 tablet by mouth twice * Problem List As Of Date 02/08/2018 Noted Resolved POSTABLAT HYPOTHYR NEC [E89.0] 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 Acute non-recurrent maxillary sinusitis - ICD9: 461.0, ICD10: J01.00 - Will begin treatment with Augmentin 875 mg PO BID for 10 days - The patient should also be given warm salt water gargles, throat lozenges and/or OTC throat spray as needed and nasal saline - Continue Zyrtec D, and Flonase or nasonex 1 spray each nostril two times a day. - Supportive care with plenty of fluids, rest, and tylenol and ibuprofen as needed - Follow up in one week if symptoms persist or worsen. -Increase fluid intake. Try to drink at least 8 glasses of non caffeinated fluids daily. --Rest as much as possible. -Do the nasal saline irrigation at least 2 x day to relieve nasal mucous and congestion: brands include Grant Med, Simply saline, [place] nasal spray, or even the generic store brand one is ok. Take the entire course of antibiotics as prescribed. DO NOT stop taking it early, even if you are feeling better. -Practice good hygiene, wash hands frequently. -Monitor for signs of worsening infection: increased temperature, pain in face, ear pain or headaches or increase in nasal congestion/mucous that is not improving. -Educated patient on side effects of medication. * Seek medical care immediately, call 911, go to ER if you have chest pain, difficulty breathing, shortness of breath, inability to swallow. Prescriptions ordered this encounter Disp Refills Start End AMOXICILLIN 875 MG-POTASSIUM CLAVULA* 20 t* 0 02/08/2018 02/18/2018 Class: Print RX Route: ORAL Sig: Take 1 tablet by mouth twice daily for 10 days. Encounter Status:Closed by ASHIA GONZALEZ CNP on 02/08/18 OFFICE VISIT REPORT Observed: 12/27/2017 Status: F Source: [place]AMA[place] 7:[address] [place] [address] OFFICE VISIT Date of Service: 12/24/17 MR#: [id number] Acct: [id number] Patient: MINA WELLS Rep #: [id number] : 1975 Provider: Stefanie Roman NP Age/Sex: 42/F Location: [facility] Status: Signed Intake Vital Signs12/24/17 Height 5 ft 4 in 12/24/17 Weight: 123 lb 2 oz 12/24/17 Body Mass Index (BMI) 21.1 12/24/17 Blood Pressure 131/78 12/24/17 Blood Pressure Location Lt popliteal 12/24/17 Blood Pressure Position Sitting Intake Visit Reasons: Thyroid dysfunction Applications Instructor Required: No Accompanied by: Self Is patient in pain?: No Allergies No Known Allergies Allergy (Verified 12/24/17 10:51) Medications Synthroid 125 mcg tablet See Label Instructions PO QDAY #102 tab NS 09/01/17 [Rx Confirmed 12/24/17] fluticasone 50 mcg/actuation nasal spray,suspension 1 spray INTRANASAL QDAY 12/15/17 [History Confirmed 12/24/17] Is last menstrual period known: No Post menopausal: No Patient : No PFSH Medical History Chronic headaches (Acute) Hypothyroidism (Acute) Surgical History S/P right knee arthroscopy (Acute) H/O adenoidectomy (Inactive) Family History Mother Breast cancer Thyroid disorder Father Cancer Social History Smoking Status: Never smoker second hand exposure: No alcohol intake: current alcohol intake frequency: a few times a month substance use type: does not use HPI HPI Details: MINA STEWART, is a 42 F who presents to the office today for follow up of hypothyroidism She continues on levothyroxine as directed. Had recent labs done and is here to discuss. At time of visit: -Pt denies symptoms of hypertensive emergency (CP,SOB,SMITH, or blurred vision) and hypotension(dizziness or lightheadedness) -Pt denies symptoms of hyperthyroidism ( sweaty, confusion and hyperglycemia ) Does have occ palpitations. -Pt denies potential medication adverse effect. Severity, modifying factors, context, and associated signs and symptoms are as follows: Thyroid pain: No Energy: Reduced Sleep: Not awakened refreshed Temp: No intolerance GI: Normal bowel Weight: Flucuates Eyes: No change in vision Memory: unchanged Diaphoresis: Not significant Skin: Dry Hair : Unchanged Neuro: No numbness, tingling or tremors Reports no overall change in her health since her last visit. ROS Const Constitutional: No anorexia, body ache, chills, fatigue, fever(s), frequent falls, decreased energy, malaise, night sweats, weakness, weight change, sleep problems, abnormal sleep pattern, change in appetite, other, headache(s), snoring or excessive sweating Eyes Eyes: No blurry vision, change in vision, double vision, discharge, dry eyes, bulging eyes, floaters, visual disturbances, eye pain, light sensitivity, spots in vision, tunnel vision or other ENT ENT: Positive for nasal congestion, nasal discharge and post nasal drip; no abnormal hearing, ear pain, ear discharge, ear pressure, hearing loss, tinnitus, dizziness/vertigo, balance problems, nosebleed/epistaxis, nasal obstruction, nose pain, sinus pressure, sinus pain, headache(s), facial pain, dental pain, dry mouth, bad breath, hoarseness, lip swelling, mouth lesions, mouth pain, sore throat, tongue swelling, throat swelling, other, difficulty swallowing or neck pain Resp Respiratory: No cough, change in phlegm color, chest congestion, excessive phlegm production, hemoptysis, pain on inspiration, shortness of breath, pain with cough, snoring, stridor, wheezing or other Cardio Cardiology: No chest pain at rest, chest pain with exertion, leg pain with exertion, excessive sweating, shortness of breath, dyspnea on exertion, generalized swelling, irregular heart rhythm, lightheadedness, orthopnea, radiating jaw, neck or arm pain, fast heart rate, slow heart rate, palpitations or other Gastro GI: No abdominal pain, belching, bloating, change in bowel habits, change in stool character, coffee ground emesis, constipation, cramping, diarrhea, heartburn, difficulty swallowing, feeling full early, excessive flatus, incontinent of stools, Vomiting blood/hematemesis, blood in stool, loose stools, Black,tarry stools, nausea/dyspepsia, pain with swallowing, vomiting or other Genitourinary-Female: No difficulty urinating, burning urination, painful urination, urinary incontinence, urinary frequency, urinary urgency, urinary hesitancy, urinary retention, blood in urine, Frequent nighttime urination/ nocturia, post void dribbling, suprapubic fullness, side pain, sexual problems, genital lesions, genital itching, hot flashes, abnormal periods, abnormal vaginal bleeding, absent period, painful periods, light periods, heavy periods, difficulty getting , painful intercourse, pelvic pain, vaginal dryness, vaginal odor, Vaginal Itching or other Musc Musculoskeletal: No abnormal walking, joint pain, back pain, deformity, joint swelling, limited range of motion, loss of height, muscle cramps, muscle weakness, decreased muscle mass, body aches, neck pain, numbness, radiating pain into limb, stiffness, tingling or other Skin Skin: No acne, hair loss, change in hair, nail changes, boil, change in skin color, dry skin, redness, excessive hair growth, yellowing of the skin, lesions, itching, rash, skin pain, skin ulcer, sores, skin swelling, wounds or other Breast Breast: No other Neuro Neurology: No frequent falls, weakness, visual disturbances, abnormal hearing, headache(s), abnormal walking, numbness or tingling Psych Psychiatric: No abnormal sleep pattern, No change in appetite Endo Endocrine: No fatigue, other or excessive sweating Aller/Imm Allergy/Immunologic: No lip swelling, tongue swelling, throat swelling, wheezing or itchy eyes Exam Const General: comfortable, well groomed Nutritional Appearance: well nourished [facility] Head: normal to inspection, normocephalic Ears: hearing grossly normal bilaterally Mouth: oral mucosae normal, moist mucous membranes abnormal Teeth and gingiva: dentition normal Eyes General: appearance normal, both eyes and all related structures Eyelids: eyelids normal Conjunctivae: conjunctivae normal Sclera: sclerae normal Pupils: PERRL Neck Neck: normal visual inspection, no lymphadenopathy Neck mass: No Thyroid: thyroid normal, tender Chest Chest palpation AND inspection: normal inspection of the chest Resp Effort AND Inspection: normal respiratory effort, able to speak in complete sentences, symmetric chest movement Auscultation: Bilateral: Clear to Auscultation Cardio Rate: regular rate Rhythm: regular rhythm Heart Sounds: S1 normal, S2 normal GI Inspection: normal to inspection Auscultation: normal bowel sounds Palpation: soft Musc Musculoskeletal: No muscle weakness Skin General: no rashes or lesions noted Wounds: no wounds Neuro General: oriented x3, gait normal Extrem General: normal to inspection Psych Appearance: well kempt Mental Status: mental status grossly normal Affect: normal affect Attitude: cooperative Thought Process: normal Thought Content: normal Judgment: judgment good Assessment AND Plan 1. Hypothyroidism (acquired) E03.9 Plan Patient will decrease her weekly dose of levothyroxine by 1/2 tablet Repeat labs in 4-6 weeks RTC 1 year Will obtain thyroid US Orders Orders: Plan Detail Other Orders Orders: Coding Level of Care Code Off vis,new,level 3 Diagnoses Hypothyroidism (acquired) E03.9 Time Spent (min) 30 12/27/171921 <Electronically signed by Stefanie SWENSON> Date Stefanie SWENSON Cosigner Signature: Date (if applicable) CC: THYROID Observed: 12/25/2017 Status: F Source: [place] 1:53 PM [facility] REPOSITORY [facility] Imaging Services [address] [place] [address] Thyroid MR#: [id number] Acct: [id number] Name: MINA WELLS Rep #: [id number] : 1975 F 42 From: Rik Freedman MD PCP: Olga Kahn MD Status: REG CLI Study: Thyroid Date of Exam: 12/25/17 Exam# [id number] Ordering Dr: Stefanie Roman STUDY: THYROID ULTRASOUND REASON FOR EXAM: Female, 42 years old. HYPOTHYROIDISM ON SINTHROID X 15 YEARS TECHNIQUE: Ultrasound evaluation of the thyroid was performed with real-time and static peres-scale imaging. COMPARISON: 10.01.16 FINDINGS: RIGHT LOBE: The right lobe of the thyroid gland measures 3.8 x 1 x 1 cm. There is a homogeneous echotexture. There are no demonstrated solid, cystic or complex lesions. LEFT LOBE: The left lobe of the thyroid gland measures 3.9 x 0.9 x 1 cm. There is a homogeneous echotexture. There are no demonstrated solid, cystic or complex lesions. ISTHMUS: The isthmus measures 2MM . The regional lymph nodes are normal. US/Thyroid IMPRESSION: Normal ultrasound examination of the thyroid. Electronically Signed: Rik Freedman MD at 19:29 EDT , Service support , CC: Stefanie Roman EDUCATIONAL PROGRAM DIRECTOR; Olga Kahn MD Rim Turning Machine Operator: Signed FREE T3 Collected: 12/19/2017 Status: F Source: JAMAAL 7:59 AM [facility] REPOSITORY TYPE CODE TESTS RESULT OUT OF RANGE REFERENCE UNITS LAB L501.63044 2.18-3.98 pg/mL Normal FREE T3 2.3 Performed By: #### L501.95816, L501.9520, L506.0400 #### [facility] [address] [place], [place], [id number] THYROID STIM HORMONE Collected: 12/19/2017 Status: F Source: JAMAAL (TSH) 7:59 AM [facility] REPOSITORY TYPE CODE TESTS RESULT OUT OF RANGE REFERENCE UNITS LAB L501.9520 0.358-3.74 uIU/mL Normal TSH 0.57 Performed By: #### L501.46232, L501.9520, L506.0400 #### [facility] [address] [place], [place], [address] T4 FREE DIRECT Collected: 12/19/2017 Status: F Source: JAMAAL 7:59 AM [facility] REPOSITORY TYPE CODE TESTS RESULT OUT OF RANGE REFERENCE UNITS LAB L506.0400 0.76-1.46 ng/dL Normal T4 FREE 1.17 DIRECT Performed By: #### L501.34165, L501.9520, L506.0400 #### [facility] [address] [place], [address] PT D/C SUMMARY (1) Observed: 12/16/2017 Status: F Source: [place] 7:22 PM [facility] REPOSITORY [facility] [address] [place] [address] Fax REHABILITATION SERVICES DISCHARGE SUMMARY MR#: [id number] Acct: [id number] Name: MINA WELLS Rep #: [id number] : 1975 42 From: Carmen Posadas MPT Referring Dr.: Anita Bullock DO Status: REG RCR Insurance: [facility] SELF PAY INSURANCE HP - PT D/C Summary It has been my pleasure to treat MINA STEWART under orders from Anita Bullock DO, for the diagnosis of R med meniscus repair 08-05-2018 for a total of 22 visit(s). Discharge Date: 12/16/17 Please see the following information for a summary of their discharge status. - Subjective Subjective: Pt reports that she always has some discomfort the day after she exercises. SHe is stil having trouble bending her knee and squatting. - Pain R knee pain Pain Intensity (Out of 10): 1 - Objective Objective/Function: 0-145 degrees R knee flexion. Pt has visable weakness present on R Quad/ham ratio with lunges, high knees and jogging although the more she did the more she seemed to be able to control her movement better despite fatigue. Pt is still not able to fully squat but she is close and will continue to work on that at home. - Goals Goal 1:: I HEP Goal Progress: Goal Met Goal 2:: Increase R knee AROM 0-130 degrees flexion Goal Progress: Goal Met Goal 3:: Walk with a normal gait pattern Goal Progress: Goal Met Goal 4:: Be able to go up and down stairs recip without a rail and without any signs of weakness Goal Progress: Goal Met Goal 5:: Be able to do 3 X 20 eccentric step downs on the R with control and no pain Goal Progress: Goal Met Goal 6:: Be able to jump and land with soft jump with no pain Goal Progress: Goal Met - Plan Plan: DC PT to HEP. Pt to call in if she has further issues - D/C Information Discharge Comments: DC PT to HEP If there are questions or concerns regarding this patient's physical therapy, please feel free to call me at [phone]. Thank you for the referral of this patient. Sincerely, Carmen Posadas <Electronically signed by Carmen Posadas MPT> 12/16/17 192 CC: Olga Kahn MD; Anita Bullock DO Signed ORTHOPEDIC VISIT Observed: 10/30/2017 Status: F Source: JAMAAL REPORT 10:10 AM [facility] [address] [place] [address] OFFICE VISIT Date of Service: 10/29/17 MR#: [id number] Acct: [id number] Name: MINA WELLS Rep #: [id number] : 1975 Provider: Anita Bullock DO Age/Sex: 42/F Location: [facility] [place].[facility] [place] Status: Signed Intake Intake Visit Reasons: RT KNEE Is patient in pain?: No Allergies No Known Allergies Allergy (Verified 10/29/17 13:01) Medications Synthroid 125 mcg tablet See Label Instructions PO QDAY #102 tab NS 09/01/17 [Rx Confirmed 10/29/17] PFSH Medical History Hypothyroidism (Acute) Surgical History S/P right knee arthroscopy (Acute) H/O adenoidectomy (Inactive) Family History Mother Breast cancer Father Cancer Social History Smoking Status: Never smoker HPI RT KNEE: Details: MINA STEWART is a 42 year old F here today s/p right knee scope DOS 11/22/17. She complains of minimal intermittent anterior, medial knee pain the more active she is, or if she has PT 2 days in a row. She denies radiation of pain. Constant swelling. Minimal numbness where incision was. She continues to go to PT 3 times per week. She does not take anything for the pain. Patient states she feels much better than she did preoperatively albeit she is stiff but that is improving with time. ROS Const Reports system reviewed and no additional complaints, except as docu Eyes Reports system reviewed and no additional complaints, except as docu ENT Reports system reviewed and no additional complaints, except as docu Card Reports system reviewed and no additional complaints, except as docu Resp Reports system reviewed and no additional complaints, except as docu GI Reports system reviewed and no additional complaints, except as docu Reports system reviewed and no additional complaints, except as docu Musc Reports joint pain, Reports joint swelling, Reports numbness Skin/Breast Reports system reviewed and no additional complaints, except as docu Neuro Yes numbness Psych Reports system reviewed and no additional complaints, except as docu Endo Reports system reviewed and no additional complaints, except as docu Donavan/Lymph Reports system reviewed and no additional complaints, except as docu Aller/Immun Reports system reviewed and no additional complaints, except as docu Ortho Exam Right Knee Date of Surgery: 08/05/17 Skin/Wound: Yes healed Contralateral Normal: Yes Swelling: No Homans Sign: No Knee ROM: Yes ROM-Extension -20 to 0, Yes ROM-Flexion 0-140 (120) Examination: Yes Pain with flexion, No Med jt line tenderness, No Lat jt line tenderness Patella Translation: 1 Apprehension with Lateral Translation: No KNEE: decreased patella mobility Left Knee Patella Translation: 1 Office Procedures Ortho Injections Injections Yes Knee Right Details: Obtained consent for injection. Under sterile conditions, aspirated 3cc and injected the patients right knee with a 10cc cocktail of 8cc bupivacaine and 2cc kenalog. The patient tolerated the injection well without any noted complication. Patient should call our office if redness develops, pain worsens or if they have any concerns. 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 Stiffness of right knee M25.661 Plan Treatment options today for her stiffness and patella decreased mobility are topical cream and continued PT, MIGUE or MIGUE with a scope. Explained that some people just progress slow but after 3months there are surgical options. Instructed to try 2more weeks of aggressive PT after a steroid injection today. After some relaxtion she has better patella rom today, so scope is unlikely. Follow up in 6wks or sooner if pain, swelling, numbness or associated symptoms, or concerns develop. All questions answered. Patient in agreement of plan. 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 (15033) 10/30/17 1010 <Electronically signed by Anita Bullock DO> Date Anita Bullock DO Cosigner Signature: Date (if applicable) CC: ALLERGIES ALLERGIES DATE TYPE / CODE NAME / CODE REACTION SEVERITY SOURCE 12/24/2017 Drug No Known Unknown [place] Allergy/304514545(S Allergies/F [facility] NOMED CT) 478139841[facility] Repository 08/27/2005 Miscellaneous OTHER [facility] Allergy/632742071([facility] NOMED CT) Repository ENCOUNTERS ENCOUNTERS ADMIT/DISCHARGE ACCOUNT ADMITTING ENCOUNTER LOCATION SOURCE NUMBER CLASS 10/04/2018 [id number] [facility] ing:LAB Repository 06/29/2018 [id number] [facility] ing:LAB Repository 03/26/2018 [id number] [facility] ing:MFPLAB Repository 03/25/2018 [id number] Ambulatory [facility] Hospital ing:LAB.FUTUR Repository E 03/22/2018 [id number] Ambulatory [facility] Hospital ing:MFPLAB Repository 03/02/2018/03/04/20 [id number] Ambulatory [address] Repository 03/02/2018/03/02/20 [id number] Ambulatory [address] Repository 02/08/2018/02/10/20 [id number] Ambulatory [address] Repository 12/25/2017 [id number] Ambulatory [facility] Hospital ing:US Repository 12/24/2017/12/25/19 [id number] [facility] [place] [facility] 12/19/2017 [id number] Ambulatory [facility] Hospital ing:LAB Repository 12/16/2017/12/17/19 [id number] Ambulatory [facility] Hospital ing:PT Repository 10/29/2017/10/29/19 [id number] [facility] [place] [facility] PAYERS PAYERS ENCOUNTER GUARANTOR PAYER SUBSCRIBER SOURCE 10/04/2018 RAKAN [place] [id number] Insurance:MEDICAL UDELLDOB: [facility] [id number]: Repository [id number]: 330 [id number] [phone] () Date:[id number] [address]DQ: 10/04/2018 Secondary NOT GIVENUNK [place] Insurance:SELF PAY [facility] Number: Effective Repository Date:2018-10-04 06/29/2018 RAKAN [address] [id number] Insurance:MEDICAL UDELLDOB: [facility] [id number] Number: Repository [id number]: 330 [id number] [phone] (HP) Date:4270-45-18BR [address] [address]VV: 06/29/2018 Secondary NOT GIVENUNK [place] Insurance:SELF PAY [facility] Number: Effective Repository Date:2018-06-29 03/26/2018 RAKAN Gomez Primary MINA Hinton [id number] Insurance:MEDICAL UDELLDOB: [facility] [id number] Number: Repository [address]Vza: 330 [id number] [phone] (HP) Date:5639-28-04XH [address] [address]VI: 03/26/2018 Secondary NOT GIVENUNK [place] Insurance:SELF PAY [facility] Number: Effective Repository Date:2018-03-26 03/25/2018 RAKAN Gomez Primary MINA Hinton [id number] Insurance:MEDICAL UDELLDOB: [facility] [id number] Number: Repository [id number]: 330 [id number] [phone] (HP) Date:0875-73-33WC [address] [address]BT: 03/25/2018 Secondary NOT GIVENUNK [place] Insurance:SELF PAY [facility] Number: Effective Repository Date:2018-03-25 03/22/2018 RAKAN Gomez Primary MINA Hinton [id number] Insurance:MEDICAL UDELLDOB: [facility] [id number] Number: Repository [id number]: 330 [id number] [phone] (HP) Date:3602-76-49KT [address] [address]PX: 03/22/2018 Secondary NOT GIVENUNK [place] Insurance:SELF PAY [facility] Number: Effective Repository Date:2018-03-22 12/25/2017 Rakan Primary MIAN Hinton [id number] Insurance:MEDICAL UDELLDOB: [address], [place] Number: Repository [id number]: 330 [id number] [phone] (HP) Date:9492-93-48CU [address] [address]DN: 12/25/2017 Secondary NOT GIVENUNK [place] Insurance:SELF PAY [facility] Number: Effective Repository Date:2017-12-24 12/24/2017 Rakan Primary MINA Hinton [id number] Insurance:MEDICAL UDELLDOB: [address], [place] Number: Repository [id number]: 330 [id number] [phone] (HP) Date:6879-43-70CW [address] [address]RQ: 12/24/2017 Secondary NOT GIVENUNK [place] Insurance:SELF PAY [facility] Number: Effective Repository Date:2017-12-24 12/19/2017 Rakan Primary MINA Hinton [id number] Insurance:MEDICAL UDELLDOB: [address], [place] Number: Repository [id number]: 330 [id number] [phone] (HP) Date:2217-14-95SA[address] [address]SU: 12/19/2017 Secondary NOT GIVENUNK [place] Insurance:SELF PAY [facility] Number: Effective Repository Date:2017-12-19 12/16/2017 Rakan Primary MINA Hinton [id number] Insurance:MEDICAL UDELLDOB: [address], [place] Number: Repository [id number]: 330 [id number] [phone] (HP) Date:3689-27-82ZG[address] [address]AS: 12/16/2017 Secondary NOT GIVENUNK [place] Insurance:SELF PAY [facility] Number: Effective Repository Date:2017-09-17 10/29/2017 Rakan BOLIVAR Jamaal [id number] Insurance:MEDICAL UDELLDOB: [facility] [id number] Number: Repository [id number]: [phone] [id number] [phone] () Date:0000-31-44CW [address] [place] [address]UN: 10/29/2017 Secondary NOT GIVENUNK [place] Insurance:SELF PAY [facility] Number: Effective Repository Date:2017-09-17
== END ==
PROVIDERS: Family Provider Family Medicine; PCP Family Medicine; Referring Provider Nurse Practitioner; Visit Provider Nurse Practitioner
DX: E03.9 Hypothyroidism, unspecified (principal)
CPT/HCPCS: 36415; 84439; 84443; 84481

== ENCOUNTER → 2018-11-23 08:01 | Outpatient (CLI) | payer OTHER, SELFPAY ==
[2018-10-26 13:13] VITALS: BMI 21.5
[2018-11-23 09:20] LABS: Vitamin D,25 Hydroxy 23.1 ng/mL (29.95-100.01)
[2018-11-23 09:27] LABS: Free T3 2.3 pg/mL (2.18-3.98); T4 Free Direct 1.36 ng/dL (0.76-1.46)
== END ==
PROVIDERS: Family Provider Family Medicine; PCP Family Medicine; Referring Provider Nurse Practitioner; Visit Provider Nurse Practitioner
DX: E03.9 Hypothyroidism, unspecified (principal); E55.9 Vitamin D deficiency, unspecified
CPT/HCPCS: 36415; 82306; 84439; 84443; 84481

== ENCOUNTER → 2019-04-08 13:48 | Outpatient (CLI) | payer OTHER, SELFPAY ==
[2018-10-26 13:13] VITALS: BMI 21.5
[2019-04-08 16:14] LABS: Cholesterol 190 mg/dL (200); High Density Lipoprotein 96 mg/dL; Thyroid Stim Hormone (TSH) 0.12 uIU/mL (0.358-3.74); Triglycerides 97 mg/dL; Very Low Density Lipoprotein 19 mg/dL (5-40)
[2019-04-08 17:04] LABS: Vitamin D,25 Hydroxy 31.5 ng/mL (29.95-100.01)
== END ==
PROVIDERS: Family Provider Family Medicine; PCP Family Medicine; Referring Provider Family Medicine; Visit Provider Family Medicine
DX: E03.9 Hypothyroidism, unspecified (principal)
CPT/HCPCS: 36415; 80061; 82306; 84443

== ENCOUNTER → 2019-09-26 16:38 | Outpatient (CLI) | payer OTHER, SELFPAY ==
[2018-10-26 13:13] VITALS: BMI 21.5
[2019-09-26 18:28] LABS: T4 Total, Thyroxin 13.3 ug/dL (4.8-13.9); Thyroid Stim Hormone (TSH) 0.41 uIU/mL (0.358-3.74); Vitamin D,25 Hydroxy 45.4 ng/mL (29.95-100.01)
== END ==
PROVIDERS: Family Provider Family Medicine; PCP Family Medicine; Referring Provider Family Medicine; Visit Provider Family Medicine
DX: E03.9 Hypothyroidism, unspecified (principal); E55.9 Vitamin D deficiency, unspecified
CPT/HCPCS: 36415; 82306; 84436; 84443

== ENCOUNTER → 2020-11-29 14:13 | Outpatient (CLI) | payer OTHER, SELFPAY ==
[2019-11-18 09:34] VITALS: BMI 21.8
[2020-11-29 17:55] LABS: T4 Free Direct 1.26 ng/dL (0.76-1.46); Thyroid Stim Hormone (TSH) 0.23 uIU/mL (0.358-3.74)
== END ==
PROVIDERS: PCP Family Medicine; Referring Provider Internal Medicine Endocrinology, Diabetes & Metabolism; Visit Provider Internal Medicine Endocrinology, Diabetes & Metabolism
DX: E89.0 Postprocedural hypothyroidism (principal)
CPT/HCPCS: 36415; 84439; 84443

== ENCOUNTER → 2021-02-18 15:56 | Outpatient (CLI) | payer OTHER, SELFPAY ==
[2020-12-14 08:04] VITALS: BMI 21.4
[2021-02-18 18:04] LABS: Vitamin D,25 Hydroxy 49.6 ng/mL
[2021-02-18 18:13] LABS: T4 Free Direct 1.28 ng/dL (0.76-1.46)
== END ==
PROVIDERS: PCP Family Medicine; Referring Provider Internal Medicine Endocrinology, Diabetes & Metabolism; Visit Provider Internal Medicine Endocrinology, Diabetes & Metabolism
DX: E55.9 Vitamin D deficiency, unspecified (principal); E89.0 Postprocedural hypothyroidism
CPT/HCPCS: 36415; 82306; 84439; 84443

== ENCOUNTER 2021-12-04 07:54 | Outpatient (CLI) | payer OTHER, SELFPAY ==
[2021-12-04 10:52] LABS: T4 Free Direct 1.16 ng/dL (0.76-1.46); Thyroid Stim Hormone (TSH) 0.46 uIU/mL (0.358-3.74)
== END 2021-12-04 23:59 | disposition home or self-care (01) ==
LOC: MTLAB 07:56
PROVIDERS: PCP Family Medicine; Referring Provider Nurse Practitioner Family; Visit Provider Nurse Practitioner Family
DX: E55.9 Vitamin D deficiency, unspecified (principal); E89.0 Postprocedural hypothyroidism
CPT/HCPCS: 36415; 82306; 84439; 84443

== ENCOUNTER → 2022-11-27 | Outpatient (CLI) | payer OTHER, SELFPAY ==
[2022-11-27 18:18] LABS: Vitamin D,25 Hydroxy 46.8 ng/mL
[2022-11-27 18:29] LABS: Thyroid Stim Hormone (TSH) 0.23 uIU/mL (0.358-3.74)
== END | disposition home or self-care (01) ==
LOC: MTLAB 16:15
PROVIDERS: PCP Family Medicine; Referring Provider Nurse Practitioner Family; Visit Provider Nurse Practitioner Family
DX: E89.0 Postprocedural hypothyroidism (principal); E55.9 Vitamin D deficiency, unspecified
CPT/HCPCS: 36415; 82306; 84439; 84443

== ENCOUNTER → 2023-03-23 | Outpatient (CLI) | payer OTHER, SELFPAY ==
[2023-03-23 18:26] LABS: Vitamin D,25 Hydroxy 62.5 ng/mL
[2023-03-23 18:52] LABS: Thyroid Stim Hormone (TSH) 0.12 uIU/mL (0.358-3.74)
== END | disposition home or self-care (01) ==
LOC: MTLAB 15:55
PROVIDERS: PCP Family Medicine; Referring Provider Internal Medicine Endocrinology, Diabetes & Metabolism; Visit Provider Internal Medicine Endocrinology, Diabetes & Metabolism
DX: E55.9 Vitamin D deficiency, unspecified (principal); E89.0 Postprocedural hypothyroidism
CPT/HCPCS: 36415; 82306; 84439; 84443

== ENCOUNTER → 2023-11-26 | Outpatient (CLI) | payer OTHER, SELFPAY ==
[2023-11-26 18:34] LABS: T4 Free Direct 1.32 ng/dL (0.76-1.46); Thyroid Stim Hormone (TSH) 0.25 uIU/mL (0.358-3.74)
== END | disposition home or self-care (01) ==
LOC: MTLAB 15:26
PROVIDERS: PCP Family Medicine; Referring Provider Internal Medicine Endocrinology, Diabetes & Metabolism; Visit Provider Internal Medicine Endocrinology, Diabetes & Metabolism
DX: E89.0 Postprocedural hypothyroidism (principal)
CPT/HCPCS: 36415; 84439; 84443

== ENCOUNTER → 2024-03-04 | Outpatient (CLI) | payer OTHER, SELFPAY ==
[2024-03-04 13:08] LABS: T4 Free Direct 1.27 ng/dL (0.76-1.46); Thyroid Stim Hormone (TSH) 0.43 uIU/mL (0.358-3.74)
== END | disposition home or self-care (01) ==
LOC: MTLAB 10:42
PROVIDERS: PCP Family Medicine; Referring Provider Internal Medicine Endocrinology, Diabetes & Metabolism; Visit Provider Internal Medicine Endocrinology, Diabetes & Metabolism
DX: E89.0 Postprocedural hypothyroidism (principal)
CPT/HCPCS: 36415; 84439; 84443

== ENCOUNTER → 2024-04-18 | Outpatient (CLI) | payer OTHER, SELFPAY ==
[2024-04-18 18:08] LABS: Anion Gap 6 (5-15); BUN 8 mg/dL (7-18); BUN/Creat Ratio 9.5 RATIO (10-20); Calcium,Total 9.5 mg/dL (8.5-10.1); Chloride 105 mmol/L (98-107); Cholesterol 165 mg/dL (200); Creatinine, Serum 0.84 mg/dL (0.55-1.02); EST Glomerular Filtration Rate 77 mL/min (>60); Est Glom Filt Rate - Afr Amer 93 mL/min (>60); Glucose 84 mg/dL (74-106); High Density Lipoprotein 86 mg/dL; Potassium 4.3 mmol/L (3.5-5.1); Sodium Level 138 mmol/L (136-145); Triglycerides 47 mg/dL; Very Low Density Lipoprotein 9 mg/dL (5-40)
== END | disposition home or self-care (01) ==
LOC: MFPLAB 15:02
PROVIDERS: PCP Family Medicine; Visit Provider Family Medicine
DX: Z00.00 Encounter for general adult medical examination without abnormal findings (principal)
CPT/HCPCS: 36415; 80048; 80061

== ENCOUNTER → 2024-12-09 | Outpatient (CLI) | payer OTHER, SELFPAY ==
[2024-12-09 13:18] LABS: ALB/GLOB Ratio 1.8 RATIO (0.9-2.4); AST(SGOT) 25 U/L (<=31); Alanine Aminotransfer ALT/SGPT 20 U/L (<=34); Albumin, Serum 4.5 g/dL (3.5-5.0); Alkaline Phosphatase 51 U/L (35-104); Anion Gap 12 (5-15); BUN 7 mg/dL (4-19); Calcium,Total 9.5 mg/dL (7.6-11.0); Carbon Dioxide 21.7 mmol/L (21.0-32.0); Chloride 105 mmol/L (98-108); Creatinine, Serum 0.76 mg/dL (0.70-1.20); EST Glomerular Filtration Rate 96 (>60); Globulin 2.5 g/dL (2.2-4.2); Glucose 79 mg/dL (70-99); Potassium 4.2 mmol/L (3.3-5.1); Protein, Total 7.1 g/dL (5.9-8.4); Sodium Level 138 mmol/L (133-145); Total Bilirubin 0.32 mg/dL (0.00-1.30)
[2024-12-09 19:31] LABS: Cholesterol 202 mg/dL (<=200); High Density Lipoprotein 92 mg/dL; Low Density Lipoprotein Calc. 100 mg/dL; Triglycerides 48 mg/dL; Very Low Density Lipoprotein 10 mg/dL (5-40); Vitamin D,25 Hydroxy 53.6 ng/mL (30-100)
== END | disposition home or self-care (01) ==
LOC: MTLAB 10:13
PROVIDERS: PCP Family Medicine; Referring Provider Internal Medicine Endocrinology, Diabetes & Metabolism; Visit Provider Internal Medicine Endocrinology, Diabetes & Metabolism
DX: E89.0 Postprocedural hypothyroidism (principal); E55.9 Vitamin D deficiency, unspecified
CPT/HCPCS: 36415; 80053; 80061; 82306; 84439; 84443

== ENCOUNTER → 2025-02-13 | Outpatient (CLI) | payer OTHER, SELFPAY | END | disposition home or self-care (01) | LOC: MTLAB 09:15 | PROVIDERS: PCP Family Medicine; Referring Provider Internal Medicine Endocrinology, Diabetes & Metabolism; Visit Provider Internal Medicine Endocrinology, Diabetes & Metabolism | DX: E89.0 Postprocedural hypothyroidism (principal) | CPT/HCPCS: 36415; 84439; 84443 ==

== ENCOUNTER → 2025-08-15 | Outpatient (CLI) | payer OTHER, SELFPAY ==
[2025-08-15 17:53] LABS: Anion Gap 11 (5-15); BUN 18 mg/dL (4-19); BUN/Creat Ratio 16.4 RATIO (10-20); Calcium,Total 9.1 mg/dL (7.6-11.0); Carbon Dioxide 24.5 mmol/L (21.0-32.0); Chloride 102 mmol/L (98-108); Glucose 85 mg/dL (70-99); Potassium 4.1 mmol/L (3.3-5.1)
== END | disposition home or self-care (01) ==
LOC: MTLAB 16:45
PROVIDERS: PCP Family Medicine; Referring Provider Internal Medicine Endocrinology, Diabetes & Metabolism; Visit Provider Internal Medicine Endocrinology, Diabetes & Metabolism
DX: E89.0 Postprocedural hypothyroidism (principal)
CPT/HCPCS: 36415; 80048; 84439; 84443